=== PATIENT | female | born 1995 | race African-American/Black ===

== ENCOUNTER 2018-04-26 15:10 | Emergency (ER) | payer SELFPAY ==
[~2018-04-26] VITALS: Ht 165.1 cm; Wt 63.8 kg
[2018-04-26 15:17] VITALS: BP 100/49
[2018-04-26] MEDS ORDERED: IBUPROFEN 800MG TABLET PO ONE (15:45)
== END 2018-04-26 16:33 | disposition home or self-care (01) ==
LOC: ER 16:28
DX: S60.455A Superficial foreign body of left ring finger, initial encounter (principal); X58.XXXA Exposure to other specified factors, initial encounter; Y93.89 Activity, other specified; Y92.89 Other specified places as the place of occurrence of the external cause; Y99.8 Other external cause status
CPT/HCPCS: 99284